=== PATIENT | male | born 1960 | race Caucasian/White ===

== ENCOUNTER 2016-09-12 11:51 | Inpatient (IN) | payer OTHER ==
[~2016-09-12] VITALS: Ht 182.9 cm; Wt 97.5 kg
--- NOTE | ~2016-09-12 | O ---
[facility] [place] [address] OPERATIVE REPORT Name: PRANAV SLATER SR Room #: 426-P [facility]..#: [id number] Admission: 09/12/16 Attend Phys: Héctor Suarez Discharge: 09/13/16 Date of : 62 Report #: [id number] THIS REPORT FOR: //name// CC: Héctor Baldwin MD PREOPERATIVE DIAGNOSIS: Right ureteral calculi, right hydronephrosis. POSTOPERATIVE DIAGNOSIS: Right ureteral calculi, right hydronephrosis. PROCEDURE: Cystoscopy, right retrograde pyelogram, right ureteral stent placement. SURGEON: Omar Rivers M.D. ANESTHESIA: General. INDICATIONS: The patient is a very pleasant 55-year-old gentleman with a long history of recurrent metabolic stone disease. He has passed multiple stones, but continues to have intermittent right flank pain and significant right hydronephrosis with an elevation in his creatinine. He has been counseled in respect to treatment options and will undergo stent placement, understanding that this is not definitive management of the stone, but should allow his renal function to improve as well as edema and swelling ____ so the stones can be dealt with more definitively. Risk of sepsis and ureteral injury requiring immediate or delayed open surgery have been discussed. He understands risk of bleeding and complications could occur, which may not have been foreseen or discussed. DESCRIPTION OF PROCEDURE: After obtaining informed consent, he was brought to the operating room where general anesthetic was administered. He was prepped and draped in lithotomy position by the operating personnel under anesthesia supervision. Preliminary fluoroscopic images were obtained, which revealed multiple fragments overlying the right kidney as well as fragments in the right hemipelvis consistent with known fragments in the right distal ureter. A 21-Zimbabwean A[employer] cystoscope was introduced under direct vision. The anterior urethra was normal. The prostatic urethra demonstrated mild trilobar enlargement, which was nonobstructive upon entering the bladder. Trigone and ureters were normal in configuration and location. There was some dust in the floor of the bladder, there was only minimal trauma, minimal erythema around the right ureteral orifice. A sensor wire was placed in the right renal pelvis without difficulty. I used an open-ended ureteral catheter and injected contrast alongside this. He appeared to have an impacted stone in the ____ in the distal ureter. I placed an open-ended ureteral catheter over the sensor wire in order to exchange this for a Glidewire to minimize friction. At that point, which was disimpacted. Upon placing the ureteral catheter into the [address] [address] OPERATIVE REPORT Name: PRANAV SLATER SR Room #: 426-P [facility] [place] ..#: [id number] Admission: 09/12/16 Attend Phys: Héctor Suarez Discharge: 09/13/16 Date of : 62 Report #: [id number] right renal pelvis, there was a distinct hydronephrotic drip, this was clear. I then placed a Glidewire into the right renal pelvis. I then removed the open-ended ureteral catheter and then I placed a 6-Zimbabwean x 26-cm contour stent. The proximal curl was overlying the right renal pelvis, distal curl was in the bladder. He was transferred to the recovery room where he arrived in stable condition. <ELECTRONICALLY SIGNED> By: Omar Rivers MD 09/17/16 [id number] Omar Rivers MD /nt
[~2016-09-12 11:51] MED LIST: ALBUTEROL2.5 MG/0.5 INH; AUGMENTIN 875875 MG PO; BENZONATATE100 MG PO; CEFDINIR300 MG PO; DEPO-TESTO200 MG/1 M IM; ENDOCET 10-3251 EACH PO; FLONASE 0.05%50 MCG NASAL; FUROSEMIDE 40 M40 M1 PO; KLOR-CON PO; LASIX 40 MG TAB40 M1 PO; LOPRESSOR 50 MG50 M1 PO; LOPRESSOR25 PO; NAPROSYN500 MG PO; NORCO 10-325 T1 EACH PO; NORCO 5-325 TA1 EACH PO; PERCOCET 10-321 EACH PO; PHENAZOPYRIDIN200 M2 PO; PHENERGAN 25 MG25 M1 PO; POTASSIUM20 PO; PROMETHAZINE V480 M1; PROMETHAZINE-C120 ML; PROMETHAZINE12.5 M1 PO; PROVENTIL HFA6.7 G1 INH; TOPROL XL50 MG; TUMS PO; VICODIN 5-5001 EACH PO; ZESTRIL2.5 MG PO; ZOFRAN8 MG PO
[2016-09-12 11:52] VITALS: BP 136/89
[2016-09-12 12:22] LABS: BASOPHILS 0.6 % (0.0-2.0); EOSINOPHILS 0.8 % (0.0-3.0); HEMATOCRIT 45.7 % (42.0-52.0); HEMOGLOBIN 15.9 gm/dL (14.0-18.0); LYMPHOCYTES 15.2 % (24.0-44.0); MCH 29.5 pg (26.0-34.0); MCHC 34.7 g/dL (28.0-37.0); MONOCYTES 7.6 % (1.0-8.0); PLATELET COUNT 220 thou/uL (150-400); POLYS 75.8 % (36.0-66.0); RBC 5.38 mil/uL (4.50-6.00); RDW 13.5 % (10.5-14.5); WBC 10.5 thou/uL (4.0-11.0)
[2016-09-12 12:23] LABS: MANUAL DIFF NO
[2016-09-12 12:26] LABS: URINE BILIRUBIN NEGATIVE (Negative); URINE BLOOD TRACE (Negative); URINE COLOR YELLOW; URINE GLUCOSE-RANDOM* NEGATIVE (Negative); URINE KETONES NEGATIVE (Negative); URINE LEUKOCYTES-REFLEX NEGATIVE (Negative); URINE PROTEIN (DIPSTICK) TRACE (Negative); URINE SPECIFIC GRAVITY 1.025 (1.003-1.035); URINE UROBILINOGEN 0.2 E.U./dl (0.2-1.0)
[2016-09-12 12:30] LABS: CALCIUM 8.7 mg/dL (8.5-10.1); CREATININE 1.6 mg/dL (0.7-1.3); POTASSIUM 3.9 mmol/L (3.5-5.1)
[2016-09-12 12:35] LABS: ALBUMIN 3.6 g/dL (3.4-5.0); TOTAL PROTEIN 7.5 g/dL (6.4-8.2)
[2016-09-12 14:28] VITALS: BP 110/68
[2016-09-12 14:36] VITALS: BP 106/70
[2016-09-12 20:00] VITALS: BP 90/55
[2016-09-13 04:00] VITALS: BP 84/44
[2016-09-13 07:04] VITALS: BP 107/67
[2016-09-13 15:09] VITALS: BP 159/103
[2016-09-13 15:16] VITALS: BP 160/104
[2016-09-13 16:08] VITALS: BP 160/104
[2016-09-13] MEDS ORDERED: FLOMAX0.4 MG PO (16:14)
== END 2016-09-13 17:08 | disposition home or self-care (01) | DRG 694 ==
LOC: ER 11:51 → 4E 12:53 → EROBS 12:53 → 4E 14:29 → EROBS 14:29 → 4E 14:32
PROVIDERS: Emergency Medicine; Hospitalist
PROC: 0T768DZ Dilation of Right Ureter with Intraluminal Device, Via Natural or Artificial Opening Endoscopic (ICD-10-PCS; principal; 2016-09-13)
PROC: BT1D1ZZ Fluoroscopy of Right Kidney, Ureter and Bladder using Low Osmolar Contrast (ICD-10-PCS; principal; 2016-09-13)
DX: N13.2 Hydronephrosis with renal and ureteral calculous obstruction (principal); N13.9 Obstructive and reflux uropathy, unspecified; I48.91 Unspecified atrial fibrillation; I50.9 Heart failure, unspecified; I11.0 Hypertensive heart disease with heart failure; K21.9 Gastro-esophageal reflux disease without esophagitis; F17.210 Nicotine dependence, cigarettes, uncomplicated; E86.0 Dehydration; K44.9 Diaphragmatic hernia without obstruction or gangrene; Z90.49 Acquired absence of other specified parts of digestive tract; N17.0 Acute kidney failure with tubular necrosis
CPT/HCPCS: 10084; 50010; 50101; 50478; 51620; 51767; 56674; 56815; 62110; 62900; 70005